=== PATIENT | female | born 1945 | race Caucasian/White ===

== ENCOUNTER → 2018-04-25 | Outpatient (CLI) | payer MEDICARE ==
[~2018-04-25] MED LIST: CYAN50008 PO; HYDR-2761 PO; MULT80TA PO; TRAZ-86 PO
--- NOTE | 2018-04-25 13:39 | EKG ---
[facility] [address] [place] [address] Test Date: 2018-04-25 Test Time: 13:36:41 Pat Name: HAO RODRIGUEZ Department: Room: Gender: F Bundle Sorter: FAITH : 1945 Requested By: ANTHONY ESTRADA Order Number: [id number] Reading MD: Naeem Garza Measurements Intervals [place] Rate: 68 P: 21 MD: 150 QRS: 12 QRSD: 72 T: 12 QT: 382 QTc: 411 Interpretive Statements SINUS RHYTHM VENTRICULAR PREMATURE COMPLEX(ES) ATRIAL PREMATURE COMPLEX(ES) ABNORMAL ECG Electronically Signed On 04-30-2018 14:18:15 TRANSPORTATION OFFICER by Naeem Garza
[2018-04-25 14:42] LABS: BASO % 1 % (0-3); EOS # 0.1 x10^3/uL (0.0-0.7); EOS % 2 % (0-3); HEMATOCRIT 35.5 % (36.0-47.0); HEMOGLOBIN 11.2 g/dL (12.0-15.5); LYMPH % 28 % (24-48); MEAN CORPUSCULAR HEMOGLOBIN 23 pg (25-35); MEAN CORPUSCULAR HGB CONC 32 g/dL (31-37); MEAN CORPUSCULAR VOLUME 74 fL (79-100); MONO # 0.5 x10^3/uL (0.0-1.1); MONO % 7 % (0-9); NEUT # 4.4 x10^3uL (1.8-7.7); NEUT % 63 % (31-73); PLATELET COUNT 378 x10^3/uL (140-400); RED BLOOD COUNT 4.78 x10^6/uL (3.50-5.40); RED CELL DISTRIBUTION WIDTH 15.3 % (11.5-14.5)
[2018-04-25 15:01] LABS: ALBUMIN 3.5 g/dL (3.4-5.0); ALBUMIN/GLOBULIN RATIO 0.9 (1.0-1.7); CALCIUM 9.2 mg/dL (8.5-10.1); CREATININE 0.8 mg/dL (0.6-1.0); GFR 70.7; POTASSIUM 3.6 mmol/L (3.5-5.1); TOTAL BILIRUBIN 0.2 mg/dL (0.2-1.0); TOTAL PROTEIN 7.5 g/dL (6.4-8.2)
--- NOTE | 2018-05-01 18:43 | NUR ---
PATIENT'S EKG'S PRELIMINARY REPORT WAS REVIEWED BY GEORGE ORTIZ RN,ANESTHESIA TEAM 04/30/2018 AND IT WAS OKAY.
== END | disposition home or self-care (01) ==
LOC: SURGPAT 12:19
PROVIDERS: ATTEND Neurological Surgery
DX: Z01.818 Encounter for other preprocedural examination (principal); M54.16 Radiculopathy, lumbar region; M48.061 Spinal stenosis, lumbar region without neurogenic claudication
CPT/HCPCS: 36415; 80053; 85025; 87641; 93005

== ENCOUNTER 2018-05-29 07:21 | Day surgery (SDC) | payer MEDICARE ==
[~2018-05-29] VITALS: Ht 167.6 cm; Wt 97.5 kg
--- NOTE | 2018-05-29 06:51 | PREOP HP ---
DATE OF SERVICE: 05/29/2018. HISTORY OF PRESENT ILLNESS: She is a pleasant 72-year-old who has developed low back pain and left-sided hip pain, which radiates into the left inguinal region and left anterior lateral thigh, stopping at about the knee. The problem has been present for a long time, but has been very severe over the last 6 months. She rates the pain as 5/10. Standing and walking as well as performing housework increase her pain. She uses lidocaine patches and takes [place]. She has had an ablation for this as well as epidural steroid injections without any benefit. PAST MEDICAL HISTORY: None noted. PAST SURGICAL HISTORY: Left knee replacement in 2012, right knee replacement in 2011, right rotator cuff 1991. FAMILY HISTORY: Cancer. SOCIAL HISTORY: Retired. . Denies substance abuse. Denies tobacco use. Drinks alcohol 1-2 times per year. ALLERGIES: No known drug allergies. CURRENT MEDICATIONS: Tramadol and [place]. REVIEW OF SYSTEMS: A 12-point review of systems was obtained and is noncontributory except that mentioned above. PHYSICAL EXAMINATION: NEUROSURGERY EXAMINATION: GENERAL APPEARANCE: Alert, pleasant, in no acute distress. HEAD: Normocephalic, atraumatic. SKIN: Warm and dry. MUSCULOSKELETAL: Lumbar paraspinal muscle bulk is normal, restricted range of motion of the lumbar spine, [id number] tenderness of the low lumbar spine with palpation, normal range of motion of the lower extremities bilaterally. EXTREMITIES: No clubbing, cyanosis or edema. NEUROLOGIC: Alert and oriented x 3, normal recent and remote memory, strength 5/5 in bilateral lower extremities, sensory was intact to light touch in bilateral lower extremities, reflexes were trace and symmetric in lower extremities bilaterally, negative straight leg raising on the right, positive straight leg raising in the left, antalgic gait favoring the left leg. IMAGING: I reviewed a lumbar MRI scan. On that study, there was hypertrophic facet and lateral recess stenosis, which is quite significant at L3-L4 on the left. There is also an element of neural foraminal narrowing at that level. ASSESSMENT/ PLAN: I reviewed the problems at L3-L4 on the left and I believe they are responsible for a significant portion of her pain. I recommend a lumbar microdecompression, L3-L4 on the left. We spoke about the technique, risk and expected postoperative course. She understands. She would like to proceed. We will make the arrangements. ANTHONY ESTRADA MD DR: CHANDLER/bebe JOB#: [id number] / [id number] BARBRA
[~2018-05-29 07:21] MED LIST changes: +BACITRACIN 50,000 UNIT in IV NORMAL SALINE 1000ML BAG 1,000 ML IRR ONE; +BUPIVAC MPF-EPI 0.5%-1:200000 30 ML VIAL. ONE; +HYDROmorphone 2 MG/ML VIAL IV PRN; +IV RINGERS,LACTATED 1000ML 1,000 ML IV SCH; +KETOROLAC 60 MG/2 ML INJ FOR OR. ONE; +LIDOCAINE 1% PF 2 ML VIAL. ID PRN; +MORPHINE SULFATE 4 MG/ML VIAL. IV PRN; +ONDANSETRON PF 4 MG/2 ML VIAL. IV PRN; +PROCHLORPERAZINE 10 MG/2 ML VIAL. IV PRN; +THROMBIN TOPICAL 20,000 UNIT SPRAY.SYRN KIT TP ONE; +fentaNYL PF VIAL 100 MCG/2 ML VIAL IV PRN
[2018-05-29] MEDS ORDERED: GELATIN SPONGE SIZE 12-7MM SPONGE. TP ONE (07:45)
[2018-05-29] MEDS ORDERED: ROCURONIUM 50 MG/5 ML VIAL. ONE (08:35)
[2018-05-29] MEDS ORDERED: REMIFENTANIL 2 MG VIAL. IV ONE (08:35)
[2018-05-29] MEDS ORDERED: MIDAZOLAM HCL/PF 2 MG/2 ML VIAL. ONE (08:35)
[2018-05-29] MEDS ORDERED: fentaNYL PF VIAL 250 MCG/5 ML VIAL ONE (08:36)
[2018-05-29] MEDS ORDERED: LIDOCAINE 2% PF 5 ML VIAL. ONE (09:41)
[2018-05-29] MEDS ORDERED: DEXAMETHASONE SOD PHOS 20 MG/5 ML VIAL. ONE (09:41)
[2018-05-29] MEDS ORDERED: ONDANSETRON PF 4 MG/2 ML VIAL. ONE ×3 (09:41)
[2018-05-29] MEDS ORDERED: PROPOFOL 20 ML IV ONE (09:41)
[2018-05-29] MEDS ORDERED: DESFLURANE > 120 MINUTES IH ONE (09:42)
[2018-05-29] MEDS ORDERED: PROPOFOL 50 ML IV ONE (09:42)
--- NOTE | 2018-05-29 10:18 | HP ---
ADMIT DATE: 05/29/2018 HISTORY OF PRESENT ILLNESS: The patient is a pleasant 72-year-old who has developed low back pain and left-sided hip pain, which radiates into the left inguinal region and left anterior lateral thigh stopping at about the knee. The problem has been present for a long time, but has been very severe over the last 6 months. She rates her pain as 5/10. Standing and walking as well as performing housework increases her pain. She did use lidocaine patches and takes [place]. She had an ablation for this as well as epidural steroid injections without benefit. PAST MEDICAL HISTORY: Verified. PAST SURGICAL HISTORY: Left knee replacement in 2012, right knee replacement in 2011, right rotator cuff in 1981. FAMILY HISTORY: Cancer. SOCIAL HISTORY: Retired. . Denies substance use. Denies tobacco use. Drinks alcohol 1-2 times per year. ALLERGIES: No known drug allergies. CURRENT MEDICATIONS: Tramadol, hydrocodone. REVIEW OF SYSTEMS: A 12-point review of systems was obtained and is noncontributory except for that mentioned above. PHYSICAL EXAMINATION: Neurosurgery examination. GENERAL APPEARANCE: Alert, pleasant, in no acute distress. HEAD: Normocephalic, atraumatic. SKIN: Warm and dry. MUSCULOSKELETAL: Lumbar paraspinal muscle bulk is normal, restricted range of motion of the lumbar spine, mild to moderate tenderness of lower lumbar spine with palpation, normal range of motion of the lower extremities bilaterally. EXTREMITIES: No clubbing, cyanosis or edema. NEUROLOGIC: Alert and oriented x 3, normal recent and remote memory. Strength 5/5 in bilateral lower extremities. Sensory was intact to light touch in bilateral lower extremities. Reflexes were trace and symmetric in lower extremities bilaterally, negative straight leg raising on the right, positive straight leg raising on the left, antalgic gait favoring the left leg. IMAGING: I reviewed a lumbar MRI scan. On that study, there is hypertrophic facet and lateral recess stenosis, which is quite significant at L3-L4 on the left. There is also an element of neural foraminal narrowing at that level. ASSESSMENT/ PLAN: I have reviewed the problems at L3-L4 on the left that are responsible for significant portion of films of her pain. I recommended a lumbar microdecompression at L3-L4 on the left. I spoke about the technique and the risks and expected postoperative course. She understands. She would like to go ahead. ANTHONY ESTRADA MD DR: CHANDLER/bebe JOB#: [id number] / [id number] BARBRA
[2018-05-29] MEDS ORDERED: GLYCOPYRROLATE 1 MG/5 ML VIAL. ONE (10:41)
[2018-05-29] MEDS ORDERED: NEOSTIGMINE 10 MG/10 ML VIAL. ONE (10:41)
--- NOTE | 2018-05-29 11:24 | OP ---
DATE OF SURGERY: 05/29/2018 PREOPERATIVE DIAGNOSES: Lateral recess stenosis L3-L4 left with left lumbar radiculopathy. POSTOPERATIVE DIAGNOSIS: Lateral recess stenosis and focal synovial cyst with nerve root compression, left L3-L4 with left lumbar radiculopathy. OPERATION PERFORMED: Hemilaminotomy and microdecompression with removal of synovial cyst, L3-L4, left. The operation was done with EMG monitoring, SSEP monitoring, fluoroscopy, microscopic dissection. SURGEON: Niles Estrada M.D. HUMAN SERVICES INSTRUCTOR: MAME Fernandes assisted with the surgery. She assisted with the exposure, the microdecompression as well as the closure. OPERATIVE INDICATIONS: The patient is a pleasant 72-year-old who developed intractable back, left hip and left inguinal and proximal anterior thigh pain, which failed conservative measures. On imaging studies, she had the above-mentioned findings and I recommended lumbar microsurgery. I spoke with her about the surgery, the risks, technique and expected postoperative course and she wants to go ahead. DESCRIPTION OF PROCEDURE: Following general endotracheal anesthesia, the patient was positioned prone on the Lester table. Her lumbar region was prepped and draped in standard fashion. JHONY hose and AV impulse boots were applied for DVT prophylaxis. A microscope was draped. Fluoroscopy was draped and brought in the field and monitoring was established. Ancef 2 grams was given less than 1 hour prior to initiation of the surgery. Using fluoroscopic guidance, an incision was made directly over the L3-L4 interspace. I dissected down the skin and subcutaneous tissue and I reflected the paraspinal muscles placing a Gautier micro disc retractor, brought in the high speed air drill and burred down a generous hemilaminotomy and then grasped the thickened ligamentum flavum and began to peel this away to decompress the region. At this point, I found that there was a synovial cyst present on the inside of the ligament and not simply cystic degenerative change, which was densely scarred to the dura and I gently began to dissect using micro instruments, micro blunt hook, etc. to develop a plane between the dura and the ligament/cyst. As I worked, I was able to peel this material away from superior to inferior and medial to lateral and fully decompress the dura. I did perform a partial foraminotomy with a 2.5 mm Fehling Kerrison. I then gently retracted the root medially. There were a number of epidural veins, which I coagulated. The disc was flat and firm and no discectomy was warranted at this point and I had an excellent decompression. I did use bone wax periodically throughout the case for any bone bleeding. I used bipolar cautery judiciously and hemostasis was well maintained throughout. I irrigated copiously and then after hemostasis was obtained, I closed the wound with absorbable sutures. The skin was closed with a 4-0 subcuticular stitch. The operation went very well and the patient awakened uneventfully. I was quite pleased with the surgery. NILES ESTRADA MD DR: CHANDLER/bebe JOB#: [id number] / [id number] BARBRA
--- NOTE | 2018-05-29 11:30 | DISCH ---
DISCHARGE INSTRUCTIONS Condition on Discharge Condition on Discharge: Stable Activity After Discharge Activity Instructions for Disc: Resume previous activity, Activity as tolerated Other activity instructions: no driving for a week Lifting Instructions after Dis: No heavy lifting, No pulling or pushing, Do not lift >10 pounds Diet after Discharge Additional Diet Restrictions: resume home diet Wound Incision Care Wound/Incision Care: Ice to area for comfort Other wound/incision instructi: may remove dressing when dry then may shower, no soaking Contacting the DRGrace after DC Call your doctor for: Concerns you may have Follow-Up Follow up with: Dr. Estrada's nurse in 2 weeks [phone] ANTHONY ESTRADA MD May 29, 2018 11:30
[2018-05-29] MEDS ORDERED: DOCU-109 PO (11:34)
[2018-05-29] MEDS ORDERED: METH-38 PO (11:34)
[2018-05-29] MEDS ORDERED: HYDROcodone/APAP 5/325MG 1 TAB TABLET ONE (12:09)
[2018-05-29 12:30] VITALS: BP 174/78
[2018-05-29] MEDS ORDERED: HYDROcodone/APAP 5/325MG 1 TAB TABLET PO ONE (12:45)
--- NOTE | 2018-06-02 14:13 | PATHOLOGY ---
[facility] Accession Number: [id number] . 01 Material submitted: . LUMBAR DECOMPRESSION . 01 Clinical history: . Lumbar stenosis, radiculopathy . 02 Diagnosis: Segments of fibrocartilaginous, synovial, fibroadipose, and skeletal muscle tissue and bone, lumbar decompression: - Degenerative changes of fibrocartilaginous tissue. (JPM:cony; 06/02/2018) QMS/06/02/2018 . 02 Comment: There is no evidence of an acute inflammatory process or malignancy. (JPM:cony; 06/02/2018) . 02 Electronically signed: . Garrett Pablo MD, Pathologist NPI- [id number] . 01 Gross description: . Received in formalin labeled "Cheyanne Melissa, lumbar decompression," are several pieces of glistening, fibrous tissue measuring 4.0 x 2.7 x 2.1 cm in aggregate dimensions, containing small fragments of bone. The tissue is submitted representatively in cassette A1, following decalcification. (TSD; 05/29/2018) TOB/TOB . 02 Pathologist provided ICD-10: M51.36 . 02 CPT . 772237, 554220 Specimen Comment: A courtesy copy of this report has been sent to Specimen Comment: [phone]. Specimen Comment: Report sent to Performed at: 01 [facility] [address], [place] [id number] MD Isidro Delgado MD Phone: [phone] Performed at: 02 [facility] [address], [place] [id number] MD Garrett Pablo MD Phone: [phone]
== END 2018-05-29 12:30 | disposition home or self-care (01) ==
LOC: SURG 07:21
PROVIDERS: ATTEND Neurological Surgery
DX: M48.061 Spinal stenosis, lumbar region without neurogenic claudication (principal); M54.16 Radiculopathy, lumbar region; M71.38 Other bursal cyst, other site; Z98.890 Other specified postprocedural states; Z96.653 Presence of artificial knee joint, bilateral; Z72.89 Other problems related to lifestyle; Z79.899 Other long term (current) drug therapy
CPT/HCPCS: 63047; 76000; 97162; 97530; A7015; G8978; G8979; G8980; J0696; J1100; J1885; J2001; J2250; J2405; J2704; J2710; J3010; J3490; J7030; J7120; 88304; 88311